=== PATIENT | female | born 1960 | race Caucasian/White ===

== ENCOUNTER 2022-07-16 16:20 | Emergency (ER) | payer OTHER ==
[2022-07-16 16:34] VITALS: BP 134/89; PULSE 75; RESP 18; TEMP 98; BMI 26.6
[2022-07-16] MEDS ORDERED: IBUPROFEN 400 MG TABLET (FP) PO ONE ×2 (17:11→17:20)
[2022-07-16] MEDS ORDERED: ACETAMINOPHEN 325 MG TABLET (FP) PO ONE (17:11)
[2022-07-16] MEDS ORDERED: ACETAMINOPHEN 325 MG TABLET (FP) ONE (17:20)
== END 2022-07-16 18:05 | disposition home or self-care (01) ==
LOC: FER 16:20
DX: M25.561 Pain in right knee (principal); V03.10XA Pedestrian on foot injured in collision with car, pick-up truck or van in traffic accident, initial encounter
CPT/HCPCS: 72170-TC-FY; 73502-TC-RT-FY; 73552-TC-RT-FY; 73564-TC-RT-FY; 73610-TC-RT-FY; 99285-25